=== PATIENT | female | born 1980 | race Caucasian/White ===

== ENCOUNTER → 2017-01-30 | Outpatient (CLI) | payer OTHER ==
[~2017-01-30] MED LIST: AMOXICILLIN500 MG PO; ARISTADA662 MG/2.4 IM; ATIVAN0.5 MG PO; AUGMENTIN 875 M1 TAB PO; AUGMENTIN 875875 MG PO; BACTRIM DS 8001 TA1 PO; CELEXA20 MG PO; CIPRO500 MG PO; CIPROFLOXACIN500 MG PO; DIFLUCAN150 MG PO; GUAIFENESIN600 MG PO; HYDROCODONE BIT1 T11 PO; IBUPROFEN600 MG PO; LAMICTAL100 MG PO; LAMICTAL200 MG PO; MOTRIN800 MG PO; NAPROSYN500 MG PO; NATURE'S BLEND F1 MG PO; PREDNISONE10 MG PO; PREDNISONE20 M1 PO; PROZAC10 MG PO; PYRIDIUM200 MG PO; ROBITUSSIN AC 110 ML PO; SUDAFED30 MG PO; TESSALON PERLE200 MG PO; ULTRAM50 MG PO; ZITHROMAX Z PA250 MG PO; ZITHROMAX250 MG PO; ZOFRAN ODT4 MG SL; Zofran4 MG PO
--- NOTE | ~2017-01-30 | WRIGHTHP ---
[place], [place] PATIENT HISTORY AND PHYSICAL EXAM NAME: CHRISTINA DUMAS [facility] #: [id number] UNIT #: [id number] ROOM: DOCTOR: MERI MELENDEZ MD BIRTHDATE: [birth year] DOS: 01/30/2017 HISTORY OF PRESENT ILLNESS: This patient is a delightful 36-year-old white female, 3, para 2, AB 1, whose last menstrual period was on 01/10/2017, who presented 01/03/2017, desiring a tubal ligation. We had a good conversation at that time of her annual exam. She had no concerns or health problems. She is a ____ 3, para 2 and she had an elective in 2013 with her last and did not want any further children. We reviewed the risks, benefits, indications, potential complications and alternatives of laparoscopic bilateral salpingectomy, understanding stated and she signed the consent. Of note is the fact that the patient's boyfriend ____ guitars and drummer in local [employer]. 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 Her children are 7 and 11. PAST MEDICAL HISTORY: Reveals a history of normal Pap recently, 3 pregnancies, 2 vaginal deliveries and as I said one elective termination. She smokes very little at this time. ALLERGIES: SHE DOES STATE AN ALLERGY TO SAPHRIS. MEDICATIONS: She takes Lamictal 200 mg 2 tabs daily for bipolar as well as Aristada injectable one-time a month for bipolar. She uses Ativan 0.5 mg daily or p.r.n. for anxiety as well as Prozac 10 mg daily for anxiety. She has had a LEEP of her cervix in 2009 with a negative Pap smears since as I mentioned, wisdom teeth extraction in 1998. She has been hospitalized for psychiatric situation as well. REVIEW OF SYSTEMS: Today is stable. FAMILY HISTORY: Reveals father from emphysema. Her mother is living with hypertension. Her maternal grandfather had gastric CA and maternal grandmother had cancer of questionable type. PHYSICAL EXAMINATION: GENERAL: Reveals a pleasant white female. She is 4 feet and 11 inches, 169 pounds. BMI is 34, in no significant distress. VITAL SIGNS: Her blood pressure is 111/73 and her oxygen saturation is normal. She has no sleep apnea complaints. Her physical exam otherwise reveals HEENT, neck, lungs, cardiac, breast exam, abdomen, extremities, neurologic exam all intact. External genitalia, vagina and cervix normal. Uterus anteverted and anteflexed, normal size, configuration, nontender and mobile. Adnexa negative. Rectal deferred. ASSESSMENT: The patient who desires fertility termination. PLAN: The patient will undergo laparoscopic bilateral salpingectomy or bilateral tubal banding on 02/05/2017. [place], [place] PATIENT HISTORY AND PHYSICAL EXAM [facility]: [id number] UNIT #: [id number] ROOM: DOCTOR: MERI MELENDEZ MD BIRTHDATE: [birth year] MERI MELENDEZ MD CM:HISPHYS:PATIENT HISTORY AND PHYSICAL EXAMINATION [id number] MERI MELENDEZ MD 02/02/17 0646 [email or web address].TM
[2017-01-30 10:36] LABS: BASO % 0.4 % (0.0-1.0); EOS # 0.1 10*3/uL (0.0-0.4); EOS % 1.3 % (1.0-4.0); HEMATOCRIT 41.8 % (37.0-47.0); HEMOGLOBIN 13.7 g/dl (12.0-16.0); LYMPH # 2.2 10*3/uL (1.3-4.4); MEAN CELL VOLUME 88.7 fl (81.0-99.0); MEAN CORPUSCULAR HGB 29.1 pg (27.0-31.0); MEAN CORPUSCULAR HGB CONC 32.8 g/dl (33.0-37.0); MONO # 0.6 10*3/uL (0.1-1.0); MONO % 6.5 % (3.0-9.0); NEUT # 6.4 10*3/uL (2.3-7.9); NEUT % 68.6 % (47.0-73.0); PLATELET COUNT AUTOMATED 218 10*3/uL (130-400); RED BLOOD COUNT 4.71 10*6/uL (4.10-5.10); RED CELL DISTRI WIDTH 13.1 % (0-14.5); WHITE BLOOD COUNT 9.3 10*3/uL (4.8-10.8)
== END | disposition home or self-care (01) ==
LOC: LAB 09:27
PROVIDERS: Obstetrics & Gynecology
DX: Z30.09 Encounter for other general counseling and advice on contraception (principal)

== ENCOUNTER → 2017-02-05 | Day surgery (SDC) | payer OTHER ==
[2017-01-30 09:30] VITALS: BP 110/76
[2017-02-05] VITALS (9 sets, daily range): BP systolic 100–115; BP diastolic 42–69
[~2017-02-05] MED LIST changes: +Percocet 325 MG1 TAB PO
--- NOTE | ~2017-02-05 | WRIGHTHP ---
[place], [place] PATIENT HISTORY AND PHYSICAL EXAM NAME: CHRISTINA DUMAS [facility] #: [id number] UNIT #: [id number] ROOM: DOCTOR: MERI MELENDEZ MD BIRTHDATE: [birth year] DOS: 02/05/2017 HISTORY OF PRESENT ILLNESS: This patient is a delightful 36-year-old white female, 3, para 2, AB 1, whose last menstrual period was on 01/10/2017, who presented 01/03/2017, desiring a tubal ligation. We had a good conversation at that time of her annual exam. She had no concerns or health problems. She is a ____ 3, para 2 and she had an elective in 2013 with her last and did not want any further children. We reviewed the risks, benefits, indications, potential complications and alternatives of laparoscopic bilateral salpingectomy, understanding stated and she signed the consent. Of note is the fact that the patient's boyfriend ____ guitars and drummer in local [employer]. 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 Her children are 7 and 11. PAST MEDICAL HISTORY: Reveals a history of normal Pap recently, 3 pregnancies, 2 vaginal deliveries and as I said one elective termination. She smokes very little at this time. ALLERGIES: SHE DOES STATE AN ALLERGY TO SAPHRIS. MEDICATIONS: She takes Lamictal 200 mg 2 tabs daily for bipolar as well as Aristada injectable one-time a month for bipolar. She uses Ativan 0.5 mg daily or p.r.n. for anxiety as well as Prozac 10 mg daily for anxiety. She has had a LEEP of her cervix in 2009 with a negative Pap smears since as I mentioned, wisdom teeth extraction in 1998. She has been hospitalized for psychiatric situation as well. REVIEW OF SYSTEMS: Today is stable. FAMILY HISTORY: Reveals father from emphysema. Her mother is living with hypertension. Her maternal grandfather had gastric CA and maternal grandmother had cancer of questionable type. PHYSICAL EXAMINATION: GENERAL: Reveals a pleasant white female. She is 4 feet and 11 inches, 169 pounds. BMI is 34, in no significant distress. VITAL SIGNS: Her blood pressure is 111/73 and her oxygen saturation is normal. She has no sleep apnea complaints. Her physical exam otherwise reveals HEENT, neck, lungs, cardiac, breast exam, abdomen, extremities, neurologic exam all intact. External genitalia, vagina and cervix normal. Uterus anteverted and anteflexed, normal size, configuration, nontender and mobile. Adnexa negative. Rectal deferred. ASSESSMENT: The patient who desires fertility termination. PLAN: The patient will undergo laparoscopic bilateral salpingectomy or bilateral tubal banding on 02/05/2017. [place], [place] PATIENT HISTORY AND PHYSICAL EXAM NAME: CHRISTINA DUMAS UNIT #: [id number] ROOM: DOCTOR: MERI MELENDEZ MD BIRTHDATE: [birth year] MERI MELENDEZ MD CM:HISPHYS:PATIENT HISTORY AND PHYSICAL EXAMINATION [id number] MERI MELENDEZ MD 02/02/17 0644 interface
--- NOTE | ~2017-02-05 | O ---
[place], [place] OPERATIVE NOTE NAME: CHRISTINA DUMAS [facility] #: [id number] UNIT #: [id number] ROOM: DOCTOR: MERI COMBS MD BIRTHDATE: [birth year] DOS: 02/05/2017 PREOPERATIVE DIAGNOSIS: Desires fertility termination. POSTOPERATIVE DIAGNOSIS: Desires fertility termination. OPERATIONS: Laparoscopic bilateral salpingectomy. SURGEON: Dr. Combs and Dr. Cruz. ANESTHESIA: General. ESTIMATED BLOOD LOSS: Minimal. REPLACEMENTS: IV fluids and Toradol. COMPLICATIONS: There were no complications. CONDITION: To recovery stable. OPERATIVE SUMMARY: The patient was taken to operating room, placed in supine position, administered general anesthesia with endotracheal intubation, followed by placement in lithotomy position where she was prepped and draped in routine manner. The bladder was straight cathed, followed by grasping of the somewhat misshapen cervix, particularly anteriorly from previous procedures, with grasping this with a tenaculum and then placing the cervical manipulator. Infraumbilical, suprapubic and right lower quadrant incisions were then made. Through the infraumbilical incision, a 5 mm trocar sleeve and laparoscope were inserted under direct visualization, followed by insufflation with CO2. Once that was completed, an 8 mm trocar and sleeve were placed through the suprapubic incision and a 5 mm trocar and sleeve were placed through the right lower quadrant incision. With a probe, we did a systematic examination of the pelvis, revealing the uterus to be normal size, configuration and mobility. The anterior and posterior cul-de-sacs were normal. All supporting structures were normal. The tubes and ovaries were normal. The appendix was noted to be retrocecal appendix, but otherwise normal. The liver edge was visualized. The gallbladder was not visualized. The upper abdomen otherwise appeared to be normal, as did the rest of the lower abdomen, descending colon, etc. Once this survey was completed, we placed a grasper and a LigaSure device and we then proceeded to ____ progressive pedicles removed the fallopian tubes bilaterally. We were careful to preserve the ovarian blood supply. Once this was removed, we examined carefully for hemostasis and noting good hemostasis and noting no other atypicalities, we removed our 2 lower abdominal trocar sleeves and instrumentation. Noting no anterior abdominal wall bleeding and noting no bleeding from our bilateral salpingectomy sites, particularly with escape of CO2, we then removed the infraumbilical trocar sleeve and laparoscope. Each incision was closed with subcuticular 3-0 Monocryl suture. Steri-Strips and dressings placed. Once that was completed, we removed the instrumentation from the vagina and noting good hemostasis, the patient was cleaned off, taken out of lithotomy position, awakened, extubated and transferred to recovery with stable [place], [place] OPERATIVE NOTE NAME: CHRISTINA DUMAS [facility] UNIT #: [id number] ROOM: DOCTOR: MERI COMBS MD BIRTHDATE: [birth year] vital signs, good hemostasis, stable sponge and instrument count and in satisfactory condition. MERI COMBS MD CM:OPRECORD:OPERATIVE NOTE [id number] MERI COMBS MD 02/05/17 0925 interface
== END | disposition home or self-care (01) ==
LOC: SDC 01-30 09:30
DX: Z33.2 Encounter for elective termination of pregnancy (principal); F17.210 Nicotine dependence, cigarettes, uncomplicated; Z88.8 Allergy status to other drugs, medicaments and biological substances; Z80.0 Family history of malignant neoplasm of digestive organs; F31.9 Bipolar disorder, unspecified; F41.9 Anxiety disorder, unspecified

== ENCOUNTER → 2018-03-08 | Outpatient (CLI) | payer OTHER ==
[2018-03-08 12:59] LABS: BASO # 0.1 10*3/uL (0.0-0.1); BASO % 0.5 % (0.0-1.0); EOS # 0.2 10*3/uL (0.0-0.4); EOS % 1.6 % (1.0-4.0); HEMATOCRIT 43.5 % (37.0-47.0); HEMOGLOBIN 14.1 g/dl (12.0-16.0); LYMPH # 2.4 10*3/uL (1.3-4.4); LYMPH % 25.9 % (27.0-41.0); MEAN CELL VOLUME 90.8 fl (81.0-99.0); MEAN CORPUSCULAR HGB 29.4 pg (27.0-31.0); MEAN CORPUSCULAR HGB CONC 32.4 g/dl (33.0-37.0); MEAN PLATELET VOLUME 11.8 fl (9.6-12.3); MONO # 0.5 10*3/uL (0.1-1.0); NEUT # 6.1 10*3/uL (2.3-7.9); NEUT % 66.6 % (47.0-73.0); PLATELET COUNT AUTOMATED 271 10*3/uL (130-400); RED BLOOD COUNT 4.79 10*6/uL (4.10-5.10); RED CELL DISTRI WIDTH 12.8 % (0-14.5); WHITE BLOOD COUNT 9.1 10*3/uL (4.8-10.8)
== END | disposition home or self-care (01) ==
LOC: LAB 12:04
PROVIDERS: Registered Nurse Psychiatric/Mental Health
DX: F31.81 Bipolar II disorder (principal)

== ENCOUNTER → 2019-01-29 | Outpatient (CLI) | payer MEDICARE, MEDICAID ==
[~2019-01-29] MED LIST changes: +ABILIFY15 MG PO; +LAMICTAL150 MG PO; +LEXAPRO10 MG PO; +VITAMIN D-32000 UNI1 PO
== END | disposition home or self-care (01) ==
LOC: ORTHO 00:04
DX: M19.032 Primary osteoarthritis, left wrist (principal); M19.031 Primary osteoarthritis, right wrist; G56.03 Carpal tunnel syndrome, bilateral upper limbs

== ENCOUNTER → 2019-02-20 | Outpatient (CLI) | payer MEDICARE, MEDICAID ==
--- NOTE | ~2019-02-20 | EKG ---
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
[2019-02-20 15:22] LABS: BASO % 0.3 % (0.0-1.0); EOS # 0.3 10*3/uL (0.0-0.4); EOS % 2.5 % (1.0-4.0); HEMATOCRIT 43.8 % (37.0-47.0); HEMOGLOBIN 13.8 g/dl (12.0-16.0); LYMPH # 2.8 10*3/uL (1.3-4.4); LYMPH % 22.9 % (27.0-41.0); MEAN CELL VOLUME 91.4 fl (81.0-99.0); MEAN CORPUSCULAR HGB 28.8 pg (27.0-31.0); MEAN CORPUSCULAR HGB CONC 31.5 g/dl (33.0-37.0); MEAN PLATELET VOLUME 11.8 fl (9.6-12.3); MONO # 0.9 10*3/uL (0.1-1.0); NEUT # 8.2 10*3/uL (2.3-7.9); PLATELET COUNT AUTOMATED 262 10*3/uL (130-400); RED BLOOD COUNT 4.79 10*6/uL (4.10-5.10); RED CELL DISTRI WIDTH 13.3 % (0-14.5); WHITE BLOOD COUNT 12.3 10*3/uL (4.8-10.8)
[2019-02-20 15:53] LABS: BUN 11 mg/dl (7-24); CHLORIDE 109 mmol/L (98-107); CREATININE 0.71 mg/dL (0.55-1.02); POTASSIUM 3.6 mmol/L (3.5-5.1); SODIUM 140 mmol/L (136-145)
== END | disposition home or self-care (01) ==
LOC: LAB 13:09
PROVIDERS: Orthopaedic Surgery
DX: G56.01 Carpal tunnel syndrome, right upper limb (principal)

== ENCOUNTER → 2019-02-27 | Day surgery (SDC) | payer MEDICARE, MEDICAID ==
[2019-02-20 13:50] VITALS: BP 111/70
[~2019-02-27] VITALS: Ht 149.8 cm; Wt 87.1 kg
[~2019-02-27] MED LIST changes: +TRAMADOL HCL50 MG PO; +ZOFRAN4 MG PO
[2019-02-27 07:11] VITALS: BP 113/65
[2019-02-27 08:12] VITALS: BP 102/66
[2019-02-27 08:27] VITALS: BP 112/64
[2019-02-27 08:42] VITALS: BP 115/70
== END | disposition home or self-care (01) ==
LOC: SDC 02-20 13:15
DX: G56.01 Carpal tunnel syndrome, right upper limb (principal); F41.9 Anxiety disorder, unspecified; F32.9 Major depressive disorder, single episode, unspecified; J45.909 Unspecified asthma, uncomplicated; F17.210 Nicotine dependence, cigarettes, uncomplicated; Z98.890 Other specified postprocedural states

== ENCOUNTER → 2023-04-26 | Outpatient (CLI) | payer MEDICARE, OTHER | END | disposition home or self-care (01) | LOC: MAMMO 01:14 | PROVIDERS: ATTEND Nurse Practitioner Women's Health | DX: Z12.31 Encounter for screening mammogram for malignant neoplasm of breast (principal); N63.23 Unspecified lump in the left breast, lower outer quadrant ==

== ENCOUNTER → 2023-05-03 | Outpatient (CLI) | payer MEDICARE, OTHER | END | disposition home or self-care (01) | LOC: US 01:37 | PROVIDERS: ATTEND Nurse Practitioner Women's Health | DX: N60.02 Solitary cyst of left breast (principal) ==

== ENCOUNTER → 2023-08-21 | Outpatient (CLI) | payer MEDICARE, OTHER ==
[2023-08-21 11:59] LABS: BASO # 0.1 10*3/uL (0.0-0.1); BASO % 0.7 % (0.0-1.0); EOS # 0.2 10*3/uL (0.0-0.4); EOS % 2.2 % (1.0-4.0); HEMATOCRIT 43.1 % (37.0-47.0); LYMPH # 2.9 10*3/uL (1.3-4.4); LYMPH % 34.9 % (27.0-41.0); MEAN CELL VOLUME 91.7 fl (81.0-99.0); MEAN CORPUSCULAR HGB 29.1 pg (27.0-31.0); MEAN CORPUSCULAR HGB CONC 31.8 g/dl (33.0-37.0); MEAN PLATELET VOLUME 11.3 fl (9.6-12.3); MONO # 0.6 10*3/uL (0.1-1.0); MONO % 7.4 % (3.0-9.0); NEUT # 4.6 10*3/uL (2.3-7.9); NEUT % 54.6 % (47.0-73.0); PLATELET COUNT AUTOMATED 243 10*3/uL (130-400); RED CELL DISTRI WIDTH 12.7 % (0-14.5); WHITE BLOOD COUNT 8.3 10*3/uL (4.8-10.8)
[2023-08-21 12:19] LABS: ALKALINE PHOSPHATASE 48 U/L (46-116); BUN 9 mg/dl (9-23); CHLORIDE 108 mmol/L (98-107); CHOLESTEROL 171 mg/dL (<200); LDL CHOLESTEROL 101 mg/dL (9-159); POTASSIUM 4.6 mmol/L (3.4-5.1); SGPT/ALT 11 U/L (5-49); TOTAL PROTEIN 6.3 gm/dL (6.0-8.0); TRIGLYCERIDES 186 mg/dl (<150)
== END | disposition home or self-care (01) ==
LOC: LAB 11:45
PROVIDERS: ATTEND Nurse Practitioner Family
DX: R63.5 Abnormal weight gain (principal); I99.9 Unspecified disorder of circulatory system; Z79.899 Other long term (current) drug therapy; Z80.9 Family history of malignant neoplasm, unspecified; Z82.49 Family history of ischemic heart disease and other diseases of the circulatory system

== ENCOUNTER → 2023-10-22 | Outpatient (CLI) | payer MEDICARE, OTHER | END | disposition home or self-care (01) | LOC: LAB 17:47 | PROVIDERS: ATTEND Nurse Practitioner Family | DX: Z12.9 Encounter for screening for malignant neoplasm, site unspecified (principal) ==

== ENCOUNTER → 2023-11-26 | Outpatient (CLI) | payer MEDICARE, OTHER ==
[2023-11-26 12:35] LABS: BASO # 0.1 10*3/uL (0.0-0.1); BASO % 0.5 % (0.0-1.0); EOS # 0.2 10*3/uL (0.0-0.4); EOS % 1.9 % (1.0-4.0); LYMPH # 3.1 10*3/uL (1.3-4.4); MEAN CELL VOLUME 88.3 fl (81.0-99.0); MEAN CORPUSCULAR HGB 29.6 pg (27.0-31.0); MEAN CORPUSCULAR HGB CONC 33.5 g/dl (33.0-37.0); MEAN PLATELET VOLUME 11.8 fl (9.6-12.3); MONO # 0.6 10*3/uL (0.1-1.0); MONO % 6.4 % (3.0-9.0); NEUT # 5.5 10*3/uL (2.3-7.9); NEUT % 57.9 % (47.0-73.0); PLATELET COUNT AUTOMATED 226 10*3/uL (130-400); RED BLOOD COUNT 4.87 10*6/uL (4.10-5.10); RED CELL DISTRI WIDTH 12.7 % (0-14.5); WHITE BLOOD COUNT 9.5 10*3/uL (4.8-10.8)
[2023-11-26 13:13] LABS: ALKALINE PHOSPHATASE 48 U/L (46-116); BUN 7 mg/dl (9-23); CHLORIDE 107 mmol/L (98-107); CHOLESTEROL 171 mg/dL (<200); LDL CHOLESTEROL 93 mg/dL (9-159); SGPT/ALT 11 U/L (5-49); TOTAL PROTEIN 6.6 gm/dL (6.0-8.0); TRIGLYCERIDES 232 mg/dl (<150)
== END | disposition home or self-care (01) ==
LOC: LAB 12:09
PROVIDERS: ATTEND Nurse Practitioner Family
DX: E78.1 Pure hyperglyceridemia (principal)